=== PATIENT | female | born 1975 | race African-American/Black ===

== ENCOUNTER 2017-09-28 20:31 | Emergency (ER) | payer MEDICARE, OTHER ==
[~2017-09-28] VITALS: Ht 154.9 cm; Wt 61.4 kg
[~2017-09-28 20:31] MED LIST: ALBU8HFA IH; BECL8.7A6 IH
[2017-09-28] MEDS ORDERED: ACETAMINOPHEN 500 MG TABLET PO ONE (23:15)
[2017-09-29 01:41] VITALS: BP 124/66
== END 2017-09-29 02:07 | disposition home or self-care (01) ==
LOC: EMS 20:33
DX: O9A.213 Injury, poisoning and certain other consequences of external causes complicating pregnancy, third trimester (principal); S63.618A Unspecified sprain of other finger, initial encounter; S30.1XXA Contusion of abdominal wall, initial encounter; N81.2 Incomplete uterovaginal prolapse; J45.909 Unspecified asthma, uncomplicated; F32.9 Major depressive disorder, single episode, unspecified; Z59.0 Homelessness; Z88.7 Allergy status to serum and vaccine; Z3A.32 32 weeks gestation of pregnancy; Y08.89XA Assault by other specified means, initial encounter
CPT/HCPCS: 76805; 99284

== ENCOUNTER 2017-10-11 12:54 | Emergency (ER) | payer MEDICARE, OTHER ==
[~2017-10-11] VITALS: Ht 154.9 cm; Wt 61.4 kg
[2017-10-11 12:57] VITALS: BP 113/54
[2017-10-11 14:31] LABS: INFLUENZA TYPE A NEGATIVE FOR TYPE A (NEGATIVE); INFLUENZA TYPE B NEGATIVE FOR TYPE B (NEGATIVE)
== END 2017-10-11 14:01 | disposition home or self-care (01) ==
LOC: EMS 12:56
DX: O26.892 Other specified pregnancy related conditions, second trimester (principal); J20.9 Acute bronchitis, unspecified; J45.909 Unspecified asthma, uncomplicated; Z3A.17 17 weeks gestation of pregnancy; Z88.8 Allergy status to other drugs, medicaments and biological substances; Z59.0 Homelessness
CPT/HCPCS: 87804; 99284

== ENCOUNTER 2017-10-16 20:37 | Emergency (ER) | payer MEDICARE, OTHER ==
[~2017-10-16] VITALS: Ht 154.9 cm; Wt 61.4 kg
[2017-10-16] MEDS ORDERED: PREN-154 PO (21:01)
[2017-10-16] MEDS ORDERED: ACETAMINOPHEN 325 MG TABLET PO ONE (21:30)
[2017-10-16 22:04] VITALS: BP 118/70
== END 2017-10-16 22:21 | disposition home or self-care (01) ==
LOC: EMS 20:39
DX: O9A.212 Injury, poisoning and certain other consequences of external causes complicating pregnancy, second trimester (principal); S00.93XA Contusion of unspecified part of head, initial encounter; S50.12XA Contusion of left forearm, initial encounter; O99.512 Diseases of the respiratory system complicating pregnancy, second trimester; O99.322 Drug use complicating pregnancy, second trimester; F12.90 Cannabis use, unspecified, uncomplicated; Z88.8 Allergy status to other drugs, medicaments and biological substances; Z3A.17 17 weeks gestation of pregnancy; Z59.0 Homelessness; Y04.2XXA Assault by strike against or bumped into by another person, initial encounter; Y93.89 Activity, other specified; Y92.89 Other specified places as the place of occurrence of the external cause; Y99.8 Other external cause status
CPT/HCPCS: 99283

== ENCOUNTER 2017-10-17 01:10 | Emergency (ER) | payer MEDICARE, OTHER ==
[~2017-10-17] VITALS: Ht 170.2 cm; Wt 75.0 kg
[~2017-10-17 01:10] MED LIST changes: -ALBU8HFA IH; -BECL8.7A6 IH; +PREN-154 PO
[2017-10-17 01:44] LABS: BASOPHILS # (AUTO) 0.03 K/uL (0.00-0.20); BASOPHILS % (AUTO) 0.4 % (0.0-2.0); EOSINOPHILS # (AUTO) 0.15 K/uL (0.00-0.70); EOSINOPHILS % (AUTO) 2.44 % (1.0-6.0); HEMATOCRIT 36.9 % (36-46); HEMOGLOBIN 12.3 g/dL (12.0-16.0); LYMPHOCYTES # (AUTO) 1.7 K/uL (1.0-4.8); LYMPHOCYTES % (AUTO) 27.5 % (22.0-44.0); MEAN CORPUSCULAR HEMOGLOBIN 30.1 pg (26.0-34.0); MEAN CORPUSCULAR HGB CONC 33.4 G/dL (31.0-37.0); MEAN CORPUSCULAR VOLUME 90 fL (80-100); MONOCYTES # (AUTO) 0.5 K/uL (0.1-1.0); MONOCYTES % (AUTO) 7.7 % (2.0-9.0); NEUTROPHILS # (AUTO) 3.8 K/uL (1.8-7.7); NEUTROPHILS % (AUTO) 61.9 % (40.0-70.0); PLATELET COUNT (AUTO) 271 K/uL (150-450); RED CELL DISTRIBUTION WIDTH 14.5 % (11.5-14.5)
[2017-10-17 01:57] LABS: ANION GAP 10 mmol/L (8-16); CALCIUM, TOTAL 9.2 mg/dL (8.8-10.5); CARBON DIOXIDE 26 mmol/L (22-29); CHLORIDE 97 mmol/L (98-107); GLOMERULAR FILTR. RATE CALC > 60 mL/min (>60); GLUCOSE,RANDOM 91 mg/dL (70-110); POTASSIUM 3.5 mmol/L (3.5-5.1); SODIUM SERUM 133 mmol/L (136-145); UREA NITROGEN, BLOOD 11 mg/dL (7-18)
[2017-10-17 02:28] LABS: ALANINE AMINOTRANSFERASE 21 U/L (12-78); ALBUMIN 3.3 g/dL (3.4-5.0); ALKALINE PHOSPHATASE 86 U/L (46-116); ASPARTATE AMINOTRANSFERASE 21 U/L (15-37); BILIRUBIN,TOTAL 0.2 mg/dL (0.1-1.0); HCG,QUANTITATIVE 72096 mIU/mL (0-6); TOTAL PROTEIN, SERUM 8.1 g/dL (6.4-8.2)
[2017-10-17 04:13] LABS: APPEARANCE,URINE CLEAR (CLEAR); BILIRUBIN,URINE NEGATIVE (NEGATIVE); GLUCOSE, URINE (UA) NEGATIVE (NEGATIVE); KETONES,URINE 15 mg/dL (NEGATIVE); LEUKOCYTE ESTERASE ,URINE NEGATIVE (NEGATIVE); NITRATE,URINE NEGATIVE (NEGATIVE); OCCULT BLOOD,URINE NEGATIVE (NEGATIVE); PH,URINE 6.5 (5.0-8.0); PROTEIN,URINE TRACE (NEGATIVE); UROBILINOGEN,URINE 0.2 mg/dL (<=1.0)
[2017-10-17 05:46] VITALS: BP 119/71
== END 2017-10-17 05:50 | disposition home or self-care (01) ==
LOC: EMS 01:11
DX: O34.522 Maternal care for prolapse of gravid uterus, second trimester (principal); O9A.212 Injury, poisoning and certain other consequences of external causes complicating pregnancy, second trimester; O99.322 Drug use complicating pregnancy, second trimester; O99.512 Diseases of the respiratory system complicating pregnancy, second trimester; N81.4 Uterovaginal prolapse, unspecified; M79.632 Pain in left forearm; J45.909 Unspecified asthma, uncomplicated; Z3A.17 17 weeks gestation of pregnancy; Z59.0 Homelessness; Z88.8 Allergy status to other drugs, medicaments and biological substances; Y04.2XXA Assault by strike against or bumped into by another person, initial encounter; Y93.89 Activity, other specified; Y92.89 Other specified places as the place of occurrence of the external cause; Y99.8 Other external cause status
CPT/HCPCS: 76805; 86901; 99285

== ENCOUNTER 2017-10-19 01:34 | Emergency (ER) | payer MEDICARE, OTHER ==
[~2017-10-19] VITALS: Ht 154.9 cm; Wt 59.1 kg
[2017-10-19] MEDS ORDERED: ALBU8.5H8 IH (01:45)
[2017-10-19 02:29] VITALS: BP 121/84
[2017-10-19] MEDS ORDERED: GuaiFENesin/D-METHORPHAN [SUGAR-FREE] 200-20MG/10 ML SYRUP UDCUP PO ONE (03:00)
[2017-10-19] MEDS ORDERED: ACETAMINOPHEN 500 MG TABLET PO ONE (03:00)
[2017-10-19] MEDS ORDERED: ALBUTEROL SULFATE HFA 90 MCG/PUFF 8 GM INHALER IH ONE (03:00)
== END 2017-10-19 03:06 | disposition home or self-care (01) ==
LOC: EMS 01:36
DX: O26.892 Other specified pregnancy related conditions, second trimester (principal); J45.901 Unspecified asthma with (acute) exacerbation; F12.90 Cannabis use, unspecified, uncomplicated; Z88.8 Allergy status to other drugs, medicaments and biological substances; Z3A.16 16 weeks gestation of pregnancy
CPT/HCPCS: 94640; 99283; J3535

== ENCOUNTER 2018-06-26 17:59 | Emergency (ER) | payer MEDICARE, OTHER ==
[~2018-06-26] VITALS: Ht 154.9 cm; Wt 59.1 kg
[~2018-06-26 17:59] MED LIST changes: +ALBU8.5H8 IH
[2018-06-26 18:01] VITALS: BP 132/77
[2018-06-26] MEDS ORDERED: MOME13HF IH (18:07)
[2018-06-26] MEDS ORDERED: ALBUTEROL SULFATE HFA 90 MCG/PUFF 8 GM INHALER IH ONE (18:30)
== END 2018-06-26 18:43 | disposition home or self-care (01) ==
LOC: EMS 18:00
DX: J45.901 Unspecified asthma with (acute) exacerbation (principal); J06.9 Acute upper respiratory infection, unspecified; F32.9 Major depressive disorder, single episode, unspecified; F12.90 Cannabis use, unspecified, uncomplicated; Z59.0 Homelessness; Z88.8 Allergy status to other drugs, medicaments and biological substances; Z79.899 Other long term (current) drug therapy; Z98.890 Other specified postprocedural states
CPT/HCPCS: 99283; J3535

== ENCOUNTER 2018-08-01 21:48 | Emergency (ER) | payer MEDICARE, OTHER ==
[~2018-08-01] VITALS: Ht 154.9 cm; Wt 56.8 kg
[~2018-08-01 21:48] MED LIST changes: +MOME13HF IH; -PREN-154 PO
[2018-08-01 22:50] VITALS: BP 144/92
== END 2018-08-01 22:56 | disposition home or self-care (01) ==
LOC: EMS 21:48
DX: H60.92 Unspecified otitis externa, left ear (principal); J32.9 Chronic sinusitis, unspecified; F32.9 Major depressive disorder, single episode, unspecified; J45.909 Unspecified asthma, uncomplicated; Z88.8 Allergy status to other drugs, medicaments and biological substances; Z59.0 Homelessness

== ENCOUNTER 2018-11-13 21:29 | Emergency (ER) | payer MEDICARE, MEDICAID ==
[~2018-11-13] VITALS: Ht 154.9 cm; Wt 56.8 kg
[2018-11-13 21:48] LABS: APPEARANCE,URINE CLOUDY (CLEAR); BILIRUBIN,URINE NEGATIVE (NEGATIVE); GLUCOSE, URINE (UA) NEGATIVE (NEGATIVE); KETONES,URINE NEGATIVE (NEGATIVE); LEUKOCYTE ESTERASE ,URINE MODERATE (NEGATIVE); NITRATE,URINE POSITIVE (NEGATIVE); OCCULT BLOOD,URINE NEGATIVE (NEGATIVE); PH,URINE 6.5 (5.0-8.0); PROTEIN,URINE NEGATIVE (NEGATIVE); UROBILINOGEN,URINE 0.2 mg/dL (<=1.0)
[2018-11-13 22:05] LABS: WBC,URINE >100 /HPF (0-5)
[2018-11-13 22:06] LABS: BACTERIA,URINE Moderate /HPF (None Seen); RBC,URINE None Seen /HPF (0-2); SQUAMOUS EPITHELIAL CELL,UR Few /LPF (None Seen)
[2018-11-13 23:30] VITALS: BP 141/74
== END 2018-11-13 23:55 | disposition home or self-care (01) ==
LOC: EMS 21:30
DX: N39.0 Urinary tract infection, site not specified (principal); J45.909 Unspecified asthma, uncomplicated; F32.9 Major depressive disorder, single episode, unspecified; F12.90 Cannabis use, unspecified, uncomplicated; Z59.0 Homelessness; Z88.1 Allergy status to other antibiotic agents; Z88.8 Allergy status to other drugs, medicaments and biological substances
CPT/HCPCS: 87086

== ENCOUNTER 2019-05-01 20:58 | Inpatient (IN) | payer MEDICARE, MEDICAID ==
[~2019-05-01] VITALS: Ht 154.9 cm; Wt 54.4 kg
[2019-05-02] MEDS: ZOLPIDEM TARTRATE 10 MG TABLET PO PRN ×2 (00:23→23:43)
[2019-05-02 00:47] VITALS: BP 140/85
[2019-05-02] MEDS ORDERED: PNEUMOCOCCAL VACCINE POLYVALENT 0.5 ML VIAL [PPSV23] IM ONE (02:30)
[2019-05-02] MEDS: LORazepam 1 MG TABLET PO PRN ×2 (04:06→09:41)
[2019-05-02] MEDS: HALOPERIDOL 5 MG TABLET PO PRN (06:43)
[2019-05-02 07:55] LABS: BASOPHILS % (AUTO) 0.7 % (0.0-2.0); EOSINOPHILS % (AUTO) 0.3 % (1.0-6.0); HEMOGLOBIN 13.1 g/dL (12.0-16.0); LYMPHOCYTES # (AUTO) 1.4 K/uL (1.0-4.8); LYMPHOCYTES % (AUTO) 45.7 % (22.0-44.0); MEAN CORPUSCULAR HEMOGLOBIN 29.7 pg (26.0-34.0); MEAN CORPUSCULAR HGB CONC 33.6 G/dL (31.0-37.0); MEAN CORPUSCULAR VOLUME 89 fL (80-100); MONOCYTES # (AUTO) 0.6 K/uL (0.1-1.0); MONOCYTES % (AUTO) 18.7 % (2.0-9.0); NEUTROPHILS % (AUTO) 34.6 % (40.0-70.0); PLATELET COUNT (AUTO) 171 K/uL (150-450); RED CELL DISTRIBUTION WIDTH 12.6 % (11.5-14.5)
[2019-05-02 08:09] LABS: HEMOGLOBIN A1C 5.9 % (4.5-6.2)
[2019-05-02 08:12] VITALS: BP 107/70
[2019-05-02 08:23] LABS: ALANINE AMINOTRANSFERASE 13 U/L (12-78); ALBUMIN 3.6 g/dL (3.4-5.0); ALKALINE PHOSPHATASE 90 U/L (46-116); ANION GAP 8 mmol/L (8-16); ASPARTATE AMINOTRANSFERASE 20 U/L (15-37); BILIRUBIN,TOTAL 1.2 mg/dL (0.1-1.0); CALCIUM, TOTAL 9.2 mg/dL (8.8-10.5); CARBON DIOXIDE 28 mmol/L (22-29); CHLORIDE 104 mmol/L (98-107); CHOL/HDL RATIO 2.5 (3.9-5.7); CHOLESTEROL 116 mg/dL (131-200); CREATININE 0.92 mg/dL (0.60-1.30); FREE T4 (FREE THYROXINE) 1.53 ng/dL (0.76-1.46); GLOMERULAR FILTR. RATE CALC > 60 mL/min (>60); GLUCOSE,RANDOM 96 mg/dL (70-110); HCG,QUANTITATIVE < 1 mIU/mL (0-6); HDL CHOLESTEROL 47 mg/dL (40-60); LDL CHOL (CALC.) 62 mg/dL (0-130); POTASSIUM 3.5 mmol/L (3.5-5.1); SODIUM SERUM 140 mmol/L (136-145); TOTAL PROTEIN, SERUM 7.5 g/dL (6.4-8.2); TRIGLYCERIDES 33 mg/dL (15-150); UREA NITROGEN, BLOOD 10 mg/dL (7-18)
[2019-05-02] MEDS: VENLAFAXINE HCL 75 MG ER CAPSULE PO SCH (12:44)
[2019-05-02] MEDS ORDERED: ALBUTEROL SULFATE HFA 90 MCG/PUFF 8 GM INHALER IH PRN (13:30)
[2019-05-02 16:08] VITALS: BP 110/64
[2019-05-03 00:48] VITALS: BP 118/76
[2019-05-03 08:18] VITALS: BP 108/62
[2019-05-03] MEDS: VENLAFAXINE HCL 75 MG ER CAPSULE PO SCH (08:55)
[2019-05-03] MEDS: FOLIC ACID 1 MG TABLET PO SCH (08:55)
[2019-05-03 16:11] VITALS: BP 100/58
[2019-05-03] MEDS: LORazepam 1 MG TABLET PO PRN (17:57)
[2019-05-04 00:54] VITALS: BP 107/75
[2019-05-04 02:00] VITALS: BP 108/72
[2019-05-04] MEDS: ZOLPIDEM TARTRATE 10 MG TABLET PO PRN ×2 (02:09→21:01)
[2019-05-04 08:05] VITALS: BP 110/67
[2019-05-04] MEDS: VENLAFAXINE HCL 150 MG ER CAPSULE PO SCH (08:36)
[2019-05-04] MEDS: FOLIC ACID 1 MG TABLET PO SCH (08:37)
[2019-05-04] MEDS: LORazepam 1 MG TABLET PO PRN ×2 (08:37→16:25)
[2019-05-04 16:22] VITALS: BP 107/75
[2019-05-05 00:01] VITALS: BP 113/78
[2019-05-05] MEDS: LORazepam 1 MG TABLET PO PRN ×3 (00:01→17:17)
[2019-05-05] MEDS: FOLIC ACID 1 MG TABLET PO SCH (08:22)
[2019-05-05] MEDS: VENLAFAXINE HCL 150 MG ER CAPSULE PO SCH (08:22)
[2019-05-05 08:24] VITALS: BP_SYST 102; BP_SYST 96; BP_DIAS 62; BP_DIAS 76
[2019-05-05] MEDS: BusPIRone HCL 5 MG TABLET PO SCH ×2 (12:24→16:16)
[2019-05-05 16:07] VITALS: BP 108/70
[2019-05-05] MEDS: HALOPERIDOL 5 MG TABLET PO PRN (20:16)
[2019-05-05] MEDS: ZOLPIDEM TARTRATE 10 MG TABLET PO PRN (21:06)
[2019-05-06 01:10] VITALS: BP 100/65
[2019-05-06 08:21] VITALS: BP 100/60
[2019-05-06] MEDS: BusPIRone HCL 5 MG TABLET PO SCH (08:40)
[2019-05-06] MEDS: VENLAFAXINE HCL 75 MG ER CAPSULE PO SCH (08:40)
[2019-05-06] MEDS: FOLIC ACID 1 MG TABLET PO SCH (08:40)
[2019-05-06] MEDS: LORazepam 1 MG TABLET PO PRN ×2 (09:30→16:34)
[2019-05-06] MEDS: BusPIRone HCL 10 MG TABLET PO SCH ×2 (12:53→16:24)
[2019-05-06 16:04] VITALS: BP 106/64
[2019-05-06] MEDS: HALOPERIDOL 5 MG TABLET PO PRN (20:15)
[2019-05-06] MEDS: ZOLPIDEM TARTRATE 10 MG TABLET PO PRN (21:02)
[2019-05-07 04:25] VITALS: BP 109/63
[2019-05-07] MEDS: FOLIC ACID 1 MG TABLET PO SCH (08:29)
[2019-05-07] MEDS: BusPIRone HCL 10 MG TABLET PO SCH (08:29)
[2019-05-07] MEDS: VENLAFAXINE HCL 75 MG ER CAPSULE PO SCH (08:29)
[2019-05-07 08:42] VITALS: BP 106/65
[2019-05-07] MEDS: LORazepam 1 MG TABLET PO PRN ×2 (09:08→20:05)
[2019-05-07] MEDS: HALOPERIDOL 5 MG TABLET PO PRN (13:07)
[2019-05-07] MEDS: BusPIRone HCL 15 MG TABLET PO SCH ×2 (13:07→16:07)
[2019-05-07 16:17] VITALS: BP 101/60
[2019-05-07] MEDS: ZOLPIDEM TARTRATE 10 MG TABLET PO PRN (20:55)
[2019-05-08 05:05] VITALS: BP 105/62
[2019-05-08 08:38] VITALS: BP 92/63
[2019-05-08] MEDS: FOLIC ACID 1 MG TABLET PO SCH (09:57)
[2019-05-08] MEDS: BusPIRone HCL 15 MG TABLET PO SCH ×3 (09:57→16:02)
[2019-05-08] MEDS: VENLAFAXINE HCL 75 MG ER CAPSULE PO SCH (09:57)
[2019-05-08] MEDS: LORazepam 1 MG TABLET PO PRN (13:37)
[2019-05-08 16:07] VITALS: BP 107/69
[2019-05-08] MEDS: ZOLPIDEM TARTRATE 10 MG TABLET PO PRN (21:23)
[2019-05-09 00:06] VITALS: BP 110/68
[2019-05-09] MEDS: LORazepam 1 MG TABLET PO PRN ×3 (00:07→20:13)
[2019-05-09 08:44] VITALS: BP 106/60
[2019-05-09] MEDS: VENLAFAXINE HCL 75 MG ER CAPSULE PO SCH (09:01)
[2019-05-09] MEDS: FOLIC ACID 1 MG TABLET PO SCH (09:02)
[2019-05-09] MEDS: BusPIRone HCL 15 MG TABLET PO SCH (09:02)
[2019-05-09] MEDS: BusPIRone HCL 10 MG TABLET PO SCH ×2 (12:17→17:00)
[2019-05-09 16:07] VITALS: BP 115/56
[2019-05-09] MEDS: ZOLPIDEM TARTRATE 10 MG TABLET PO PRN (21:33)
[2019-05-10 00:10] VITALS: BP 110/64
[2019-05-10 08:10] VITALS: BP 96/63
[2019-05-10] MEDS: BusPIRone HCL 10 MG TABLET PO SCH (09:00)
[2019-05-10] MEDS: VENLAFAXINE HCL 75 MG ER CAPSULE PO SCH (09:24)
[2019-05-10] MEDS: FOLIC ACID 1 MG TABLET PO SCH (09:24)
[2019-05-10] MEDS: QUEtiapine FUMARATE 25 MG TABLET PO SCH (10:39)
[2019-05-10] MEDS: LORazepam 1 MG TABLET PO PRN (10:39)
[2019-05-10] MEDS: FLUTICASONE FUROATE 200 MCG/INH INHALER [14] IH SCH (13:15)
[2019-05-10 16:49] VITALS: BP 105/63
[2019-05-10] MEDS ORDERED: QUEtiapine FUMARATE 100 MG TABLET PO SCH (21:00)
[2019-05-10] MEDS: ZOLPIDEM TARTRATE 10 MG TABLET PO PRN (22:16)
[2019-05-11 06:16] VITALS: BP 100/68
[2019-05-11 08:04] VITALS: BP 96/58
[2019-05-11 08:53] VITALS: BP 96/63
[2019-05-11] MEDS: QUEtiapine FUMARATE 25 MG TABLET PO SCH (08:55)
[2019-05-11] MEDS: VENLAFAXINE HCL 75 MG ER CAPSULE PO SCH (08:55)
[2019-05-11] MEDS: FOLIC ACID 1 MG TABLET PO SCH (08:55)
[2019-05-11] MEDS: FLUTICASONE FUROATE 200 MCG/INH INHALER [14] IH SCH (08:58)
[2019-05-11] MEDS ORDERED: QUEtiapine FUMARATE 25 MG TABLET PO SCH (09:00)
[2019-05-11] MEDS: HALOPERIDOL 5 MG TABLET PO PRN (11:07)
[2019-05-11 18:11] VITALS: BP 116/57
[2019-05-11] MEDS: QUEtiapine FUMARATE 300 MG ER TABLET PO SCH (20:17)
[2019-05-12 00:10] VITALS: BP_SYST 109; BP_SYST 128; BP_DIAS 68; BP_DIAS 78
[2019-05-12 08:27] VITALS: BP 115/54
[2019-05-12] MEDS: VENLAFAXINE HCL 75 MG ER CAPSULE PO SCH (08:44)
[2019-05-12] MEDS: FOLIC ACID 1 MG TABLET PO SCH (08:44)
[2019-05-12] MEDS: FLUTICASONE FUROATE 200 MCG/INH INHALER [14] IH SCH (08:45)
[2019-05-12 16:02] VITALS: BP 106/67
[2019-05-12] MEDS: QUEtiapine FUMARATE 300 MG ER TABLET PO SCH (20:17)
[2019-05-13 06:06] VITALS: BP 110/68
[2019-05-13] MEDS: FOLIC ACID 1 MG TABLET PO SCH (09:16)
[2019-05-13] MEDS: VENLAFAXINE HCL 75 MG ER CAPSULE PO SCH (09:16)
[2019-05-13] MEDS: FLUTICASONE FUROATE 200 MCG/INH INHALER [14] IH SCH (09:17)
[2019-05-13 12:57] VITALS: BP 100/65
[2019-05-13 16:11] VITALS: BP 101/51
[2019-05-13] MEDS: QUEtiapine FUMARATE 300 MG ER TABLET PO SCH (20:43)
[2019-05-13] MEDS: ZOLPIDEM TARTRATE 10 MG TABLET PO PRN (20:43)
[2019-05-14 00:06] VITALS: BP 110/69
[2019-05-14 08:23] VITALS: BP 92/63
[2019-05-14] MEDS: VENLAFAXINE HCL 75 MG ER CAPSULE PO SCH (08:29)
[2019-05-14] MEDS: FOLIC ACID 1 MG TABLET PO SCH (08:31)
[2019-05-14] MEDS: FLUTICASONE FUROATE 200 MCG/INH INHALER [14] IH SCH (08:31)
[2019-05-14 16:00] VITALS: BP 106/65
[2019-05-14] MEDS: QUEtiapine FUMARATE 300 MG ER TABLET PO SCH (20:33)
[2019-05-14] MEDS: ZOLPIDEM TARTRATE 10 MG TABLET PO PRN (21:03)
[2019-05-15 06:16] VITALS: BP 111/72
[2019-05-15 08:18] VITALS: BP 90/50
[2019-05-15] MEDS: VENLAFAXINE HCL 75 MG ER CAPSULE PO SCH (08:35)
[2019-05-15] MEDS: FOLIC ACID 1 MG TABLET PO SCH (08:36)
[2019-05-15] MEDS: FLUTICASONE FUROATE 200 MCG/INH INHALER [14] IH SCH (08:36)
[2019-05-15 13:12] VITALS: BP 112/74
[2019-05-15 16:46] VITALS: BP 93/53
[2019-05-15] MEDS: QUEtiapine FUMARATE 300 MG ER TABLET PO SCH (20:10)
[2019-05-15] MEDS: ZOLPIDEM TARTRATE 10 MG TABLET PO PRN (21:14)
[2019-05-16 00:56] VITALS: BP 102/63
[2019-05-16] MEDS: FOLIC ACID 1 MG TABLET PO SCH (08:22)
[2019-05-16] MEDS: FLUTICASONE FUROATE 200 MCG/INH INHALER [14] IH SCH (08:23)
[2019-05-16] MEDS: VENLAFAXINE HCL 75 MG ER CAPSULE PO SCH (08:23)
[2019-05-16 08:29] VITALS: BP 92/51
[2019-05-16 11:50] VITALS: BP 101/63
[2019-05-16 16:03] VITALS: BP 103/64
[2019-05-16] MEDS: QUEtiapine FUMARATE 300 MG ER TABLET PO SCH (20:21)
[2019-05-16] MEDS: ZOLPIDEM TARTRATE 10 MG TABLET PO PRN (21:05)
[2019-05-17 01:56] VITALS: BP 105/65
[2019-05-17 08:08] VITALS: BP 95/58
[2019-05-17] MEDS: VENLAFAXINE HCL 75 MG ER CAPSULE PO SCH (08:08)
[2019-05-17] MEDS: FOLIC ACID 1 MG TABLET PO SCH (08:08)
[2019-05-17] MEDS: FLUTICASONE FUROATE 200 MCG/INH INHALER [14] IH SCH (08:09)
[2019-05-17 10:58] VITALS: BP 108/75
[2019-05-17 16:01] VITALS: BP 107/64
[2019-05-17 20:11] VITALS: BP 112/70
[2019-05-17] MEDS ORDERED: QUEtiapine FUMARATE 200 MG ER TABLET PO SCH (21:00)
[2019-05-17] MEDS: ZOLPIDEM TARTRATE 10 MG TABLET PO PRN (21:11)
[2019-05-18 01:18] VITALS: BP 106/62
[2019-05-18] MEDS: VENLAFAXINE HCL 75 MG ER CAPSULE PO SCH (08:21)
[2019-05-18] MEDS: FOLIC ACID 1 MG TABLET PO SCH (08:22)
[2019-05-18] MEDS: FLUTICASONE FUROATE 200 MCG/INH INHALER [14] IH SCH (08:22)
[2019-05-18 08:34] VITALS: BP 94/56
[2019-05-18] MEDS ORDERED: VENL-67 PO (13:51)
[2019-05-18] MEDS ORDERED: QUET300T5 PO (13:51)
[2019-05-18 16:10] VITALS: BP 117/66
== END 2019-05-18 17:15 | disposition home or self-care (01) | DRG 885 ==
LOC: B2S 23:08
PROVIDERS: ADMIT Psychiatry & Neurology Psychiatry; ATTEND Psychiatry & Neurology Psychiatry
DX: F33.2 Major depressive disorder, recurrent severe without psychotic features (principal); R45.851 Suicidal ideations; R17 Unspecified jaundice; F12.90 Cannabis use, unspecified, uncomplicated; D72.819 Decreased white blood cell count, unspecified; J45.909 Unspecified asthma, uncomplicated; E05.90 Thyrotoxicosis, unspecified without thyrotoxic crisis or storm; Z91.5 Personal history of self-harm; Z88.8 Allergy status to other drugs, medicaments and biological substances; Z79.899 Other long term (current) drug therapy
CPT/HCPCS: 83036; 84439; 84443

== ENCOUNTER 2021-06-24 20:37 | Emergency (ER) | payer MEDICARE, OTHER ==
[~2021-06-24] VITALS: Ht 157.5 cm; Wt 63.6 kg
[~2021-06-24 20:37] MED LIST changes: -ALBU8.5H8 IH; -MOME13HF IH; +QUET300T5 PO; +VENL-67 PO
[2021-06-25] MEDS ORDERED: IBUPROFEN 800 MG TABLET PO ONE (01:30)
[2021-06-25 02:03] VITALS: BP 115/77
== END 2021-06-25 02:30 | disposition home or self-care (01) ==
LOC: EMS 20:40
DX: T74.21XA Adult sexual abuse, confirmed, initial encounter (principal); S22.31XA Fracture of one rib, right side, initial encounter for closed fracture; S70.12XA Contusion of left thigh, initial encounter; F41.9 Anxiety disorder, unspecified; J45.909 Unspecified asthma, uncomplicated; F32.9 Major depressive disorder, single episode, unspecified; F17.200 Nicotine dependence, unspecified, uncomplicated; F12.90 Cannabis use, unspecified, uncomplicated; Z59.00 Homelessness unspecified; Z88.6 Allergy status to analgesic agent; Z88.8 Allergy status to other drugs, medicaments and biological substances; Y04.2XXA Assault by strike against or bumped into by another person, initial encounter; Y93.89 Activity, other specified; Y92.89 Other specified places as the place of occurrence of the external cause; Y99.8 Other external cause status
CPT/HCPCS: 71046; 99284

== ENCOUNTER 2021-07-01 16:45 | Emergency (ER) | payer MEDICARE, OTHER ==
[~2021-07-01] VITALS: Ht 154.9 cm; Wt 55.0 kg
[2021-07-01] MEDS ORDERED: ACETAMINOPHEN 325 MG TABLET PO ONE (17:15)
[2021-07-01 17:24] LABS: COVID AG,FIA SOURCE NASOPHARYNGEAL
[2021-07-01 18:49] VITALS: BP 108/60
== END 2021-07-01 18:59 | disposition home or self-care (01) ==
LOC: EMS 16:51
DX: U07.1 COVID-19 (principal); J45.909 Unspecified asthma, uncomplicated; F32.9 Major depressive disorder, single episode, unspecified; F41.9 Anxiety disorder, unspecified; Z59.00 Homelessness unspecified
CPT/HCPCS: 71045; 99284

== ENCOUNTER 2021-07-16 03:28 | Emergency (ER) | payer MEDICARE, OTHER ==
[~2021-07-16] VITALS: Ht 154.9 cm; Wt 65.9 kg
[2021-07-16] MEDS ORDERED: ACETAMINOPHEN 500 MG TABLET PO ONE (03:45)
[2021-07-16] MEDS ORDERED: IBUPROFEN 600 MG TABLET PO ONE (03:45)
[2021-07-16 05:31] VITALS: BP 130/80
== END 2021-07-16 06:18 | disposition home or self-care (01) ==
LOC: EMS 03:29
DX: S00.83XA Contusion of other part of head, initial encounter (principal); Y04.0XXA Assault by unarmed brawl or fight, initial encounter; Y93.89 Activity, other specified; Y92.89 Other specified places as the place of occurrence of the external cause; Y99.8 Other external cause status
CPT/HCPCS: 99283

== ENCOUNTER 2022-04-04 03:56 | Emergency (ER) | payer MEDICARE, MEDICAID ==
[2022-04-04] MEDS ORDERED: ACETAMINOPHEN 325 MG TABLET PO ONE (04:15)
[2022-04-04 06:08] VITALS: BP 126/87
== END 2022-04-04 06:13 | disposition home or self-care (01) ==
LOC: EMS 04:03
DX: M79.672 Pain in left foot (principal); J45.909 Unspecified asthma, uncomplicated; F32.9 Major depressive disorder, single episode, unspecified; F41.9 Anxiety disorder, unspecified; F12.90 Cannabis use, unspecified, uncomplicated; Z88.8 Allergy status to other drugs, medicaments and biological substances; Z79.899 Other long term (current) drug therapy; Z59.00 Homelessness unspecified
CPT/HCPCS: 99283

== ENCOUNTER 2024-10-04 23:14 | Emergency (ER) | payer OTHER ==
[~2024-10-04] VITALS: Ht 154.9 cm; Wt 66.0 kg
[2024-10-04 23:37] VITALS: BP 111/72; PULSE 83; RESP 18; TEMP 98.6; O2SAT 100
== END 2024-10-05 01:11 | disposition left against medical advice (07) ==
LOC: EMS 23:17
DX: R06.02 Shortness of breath (principal); Z53.21 Procedure and treatment not carried out due to patient leaving prior to being seen by health care provider